=== PATIENT | male | born 1990 | race Two or more races ===

== ENCOUNTER 2021-06-12 09:05 | Emergency (ER) | payer SELFPAY ==
[~2021-06-12] VITALS: Ht 160 cm; Wt 75.7 kg
--- NOTE | 2021-06-12 09:11 | NUR ---
TO ER BED 1, C/O LACERATION TO LEFT INDEX FINGER SUSTAINED WHILE USING A "BEND SAW" AT WORK. AAOX3, BREATHING EVEN AND NON LABORED
[2021-06-12] MEDS ORDERED: LIDOCAINE HCL/MPF 1% 30 ML VIAL IJ ONE (09:53)
[2021-06-12] MEDS ORDERED: TDAP [DIPH/PERTUSSIS/TET] 0.5 ML VIAL IM ONE ×2 (10:00→10:05)
[2021-06-12] MEDS ORDERED: BACITRACIN ZINC OINT PACKET 1 EA PACKET TP ONE (10:00)
[2021-06-12] MEDS ORDERED: LIDOCAINE 1% INJ 50 ML MDV IJ ONE (10:00)
[2021-06-12] MEDS ORDERED: IBUP-1955 PO (10:07)
[2021-06-12] MEDS ORDERED: CEPH500T PO (10:07)
[2021-06-12] MEDS ORDERED: GELATIN SPONGE,ABSORBABLE 1 SPONGE SPONGE TP ONE (10:14)
[2021-06-12 10:36] VITALS: BP 137/84
--- NOTE | 2021-06-12 10:36 | NUR ---
Patient discharged to home in stable condition. Written and verbal after care instructions given. Patient verbalizes understanding of instruction.
== END 2021-06-12 10:36 | disposition home or self-care (01) ==
LOC: ER 09:09
DX: S61.211A Laceration without foreign body of left index finger without damage to nail, initial encounter (principal); Z90.89 Acquired absence of other organs; W27.0XXA Contact with workbench tool, initial encounter; Y93.89 Activity, other specified; Y92.89 Other specified places as the place of occurrence of the external cause; Y99.0 Civilian activity done for income or pay
CPT/HCPCS: 64450; 90471; 90715; 99284; A6403; J3490

== ENCOUNTER → 2021-06-19 | Emergency (ER) | payer SELFPAY ==
[~2021-06-19] VITALS: Ht 170.2 cm; Wt 79.4 kg
[~2021-06-19] MED LIST: CEPH500T PO; IBUP-1955 PO
[2021-06-19 12:45] VITALS: BP 134/81
--- NOTE | 2021-06-19 12:45 | NUR ---
PT FROM HOME CC FOR Wound check to laceration to L index finger. PT A/OX4. TOLERATING R/A WELL WITH NO SOB.
--- NOTE | 2021-06-19 12:49 | NUR ---
DR BLEVINS AT THE BEDSIDE
--- NOTE | 2021-06-19 13:14 | NUR ---
Patient discharged to home in stable condition. Written and verbal after care instructions given. Patient verbalizes understanding of instruction.
== END | disposition home or self-care (01) ==
LOC: ER 13:18
DX: S61.211D Laceration without foreign body of left index finger without damage to nail, subsequent encounter (principal); Z90.89 Acquired absence of other organs; X58.XXXD Exposure to other specified factors, subsequent encounter